=== PATIENT | female | born 1985 | race Caucasian/White ===

== ENCOUNTER 2018-03-20 16:05 | Emergency (ER) | payer OTHER ==
[~2018-03-20] VITALS: Ht 157.5 cm; Wt 60.3 kg
== END 2018-03-20 20:51 | disposition home or self-care (01) ==
LOC: ER 16:05
DX: O46.8X1 Other antepartum hemorrhage, first trimester (principal)

== ENCOUNTER 2018-06-20 22:49 | Emergency (ER) | payer OTHER ==
[~2018-06-20] VITALS: Ht 157.5 cm; Wt 67.1 kg
[2018-06-20] MEDS ORDERED: PRENATAL + DHA1 EAC1 (23:00)
[2018-06-21] MEDS ORDERED: CEFUROXIME500 MG PO (03:37)
[2018-06-21] MEDS ORDERED: PYRIDIUM DS200 MG PO (03:37)
== END 2018-06-21 04:00 ==
LOC: ER 22:49
DX: O23.32 Infections of other parts of urinary tract in pregnancy, second trimester (principal)

== ENCOUNTER 2018-09-28 08:45 | Inpatient (IN) | payer OTHER ==
[~2018-09-28] VITALS: Ht 157.5 cm; Wt 3.6 kg
[~2018-09-28 08:45] MED LIST: CEFUROXIME500 MG PO; PRENATAL + DHA1 EAC1; PYRIDIUM DS200 MG PO
== END 2018-10-08 11:26 | disposition home or self-care (01) | DRG 788 ==
LOC: LDR 10-05 10:58 → OB/GYN 10-05 10:58
PROVIDERS: ADMIT Obstetrics & Gynecology
PROC: 3E033VJ Introduction of Other Hormone into Peripheral Vein, Percutaneous Approach (ICD-10-PCS; 2018-10-05)
PROC: 4A1HXCZ Monitoring of Products of Conception, Cardiac Rate, External Approach (ICD-10-PCS; 2018-10-05)
PROC: 10D00Z1 Extraction of Products of Conception, Low, Open Approach (ICD-10-PCS; principal; 2018-10-05 18:00)
DX: O61.0 Failed medical induction of labor (principal); Z3A.38 38 weeks gestation of pregnancy; Z37.0 Single live birth; O24.420 Gestational diabetes mellitus in childbirth, diet controlled